=== PATIENT | female | born 1990 | race Caucasian/White ===

== ENCOUNTER 2019-03-29 08:04 | Inpatient (IN) | payer OTHER ==
[2019-04-02] MEDS ORDERED: Promethazine HCl 25 MG/ML VIAL IM PRN (22:15)
[2019-04-02] MEDS ORDERED: Butorphanol Tartrate 1 MG/ML VIAL SLOW IVP PRN (22:15)
[2019-04-02] MEDS ORDERED: NS / Oxytocin 40 units/1000ml 1,000 ML IV PRN (22:15)
[2019-04-02] MEDS ORDERED: hydrALAZINE 20 MG/ML VIAL SLOW IVP PRN (22:15)
[2019-04-02] MEDS ORDERED: Lidocaine 1% (PF) 30 ML VIAL SC PRN (22:15)
[2019-04-02] MEDS ORDERED: Ibuprofen 800 MG TAB PO PRN (22:15)
[2019-04-02] MEDS ORDERED: Ondansetron PF 4 MG/2 ML Vial IVP PRN (22:15)
[2019-04-02] MEDS ORDERED: HYDROcodone/Acetaminophen 5/325 mg Tablet PO PRN ×2 (22:15)
[2019-04-02] MEDS ORDERED: NS w/ Oxytocin 10 units 500 ML IV SCH ×2 (22:15)
[2019-04-02 22:21] VITALS: BMI 27.6
[2019-04-02] MEDS: Lactated Ringer's 1,000 ML IV SCH (22:25)
--- NOTE | 2019-04-02 22:30 | PDOC.EVN ---
Event Note - Event Note Event Note: IAN Hamilton At bedside Time: 0 I have reviewed COOK balloon with the patient. EDC: 03/29/19 Once IV completed we will place COOK balloon.
--- NOTE | 2019-04-02 22:47 | PDOC.EVN ---
Event Note - Event Note Event Note: @224 Cook balloon placed per IFU Filled 80/80 in stepwise sequence per IFU CX visually 1cm No complications
[2019-04-02 23:06] LABS: Hemoglobin 11.3 g/dL (12.0-16.0); Mean Corpuscular HGB CONC 34.4 g/dL (32.0-36.0); Mean Corpuscular Hemoglobin 29.7 pg (27.0-31.0); Mean Corpuscular Volume 86.4 fL (78.0-98.0); Mean Platelet Volume 9.4 fL (7.4-10.4); Platelet Count 178 thou/uL (130-400); RBC Distribution Width 11.6 % (11.5-14.5); Red Blood Cell (RBC) Count 3.82 mill/uL (4.20-5.40); White Blood Cell (WBC) Count 13.7 thou/uL (4.8-10.8)
[2019-04-02 23:45] LABS: HBSAg Index 0.19 S/CO (0-0.99); Hep B Surf Ag Non-Reactive S/CO (NonReactive)
[2019-04-02 23:51] LABS: Syphilis Antibody Nonreactive (Nonreactive); Syphilis Antibody Index 0.08 S/CO (<1.00 Non-Reactive)
--- NOTE | 2019-04-03 06:25 | PDOC.LDHP ---
Labor and Delivery H&P Chief complaint: scheduled induction HPI: Pt is here for scheduled IOL for prolonged . Current gestational age (weeks): 40 Due date: 03/29/19 Dating criteria: first trimester ultrasound Grav: 1 Para: 0 Current complications: none Abnormal US findings: No Past Medical History: hyperprolactinemia Current medications: pre- vitamins Previous surgical history: none Allergies/Adverse Reactions: Allergies Allergy/AdvReac Type Severity Reaction Status Date / Time Penicillins Allergy Mild Verified 04/02/19 23:16 Social history: none - Physical Exam Vital signs reviewed and normal: yes General: NAD Heart: RRR Lungs: CTAB Abdomen: gravid Extremeties: no edema FHT: category 1 - Vaginal Exam cm dilated: 1 - OB Labs Blood type: O RH: positive Antibody Screen: negative HIV: negative RPR: negative HEPSAg: negative 1 hour GCT: negative GBS: negative Urine drug screen: negative Rubella: immune - Assessment L&D Assessment: medically indicated induction (prolonged ) - Plan Plan: admit to L&D, cervical ripening (with Cook Ballon and pitocin), labor augmentation if indicated, informed consent obtained, anesthesia consult for pain management
[2019-04-03] MEDS ORDERED: Fentanyl 4 mcg/Bup 0.1% Cadd 100 ML ONE (08:37)
--- NOTE | 2019-04-03 08:56 | PDOC.LDPN ---
Labor & Delivery Progress Note - Subjective Subjective: comfortable - Objective Vital signs reviewed and normal: yes General: NAD Dilation: 6 Effacement: 75% Station: -1 FHT: category 1 AROM: meconium stained fluid - Assessment (1) Post-term , 40-42 weeks of gestation Code(s): O48.0 - POST-TERM Current Visit: Yes Status: Acute Plan: continue plan of care -: A?P: AROM after Cook balloon removal w meconium stained fluid noted. Pt doing well, epidural at patient request.
[2019-04-03] MEDS ORDERED: Fentanyl 100 MCG/2 ML VIAL ONE (09:06)
[2019-04-03] MEDS ORDERED: Promethazine HCl 25 MG/ML VIAL IM PRN (09:37)
[2019-04-03] MEDS ORDERED: Naloxone HCl 0.4 mg/ml Vial IVP PRN ×2 (09:37)
[2019-04-03] MEDS ORDERED: ePHEDrine/0.9% NaCl/PF SYRINGE 50 mg/10 ml SLOW IVP PRN (09:37)
[2019-04-03] MEDS ORDERED: Acetaminophen 325 MG TAB PO PRN (09:37)
[2019-04-03] MEDS ORDERED: Ondansetron PF 4 MG/2 ML Vial IVP PRN ×2 (09:37→16:08)
[2019-04-03] MEDS ORDERED: Lactated Ringer's 500 ML IV PRN (09:37)
[2019-04-03] MEDS ORDERED: diphenhydrAMINE 50 MG/ML VIAL IVP PRN (09:37)
[2019-04-03] MEDS ORDERED: Fentanyl 4 mcg/Bupivacaine 0.1% Cassette 100 ML EPIDURAL SCH (09:45)
[2019-04-03] MEDS ORDERED: Communication Order-Pharmacy FS SCH (09:45)
[2019-04-03] MEDS: Lactated Ringer's 1,000 ML IV SCH ×2 (10:23→21:16)
--- NOTE | 2019-04-03 14:36 | PDOC.OPDEL ---
OB Operative/Delivery Note Delivery Dr/Surgeon: Josesito Pre-Delivery Diagnosis: medically indicated induction (prolonged preg) Weeks gestation: 40 Anesthesia: epidural - Findings A Sex: female - 1 min: 9 - 5 min: 9 - Additional Findings/Plan Placenta delivered: spontaneous Repaired Obstetrical Laceration: left labial Estimated blood loss: 275ml Post delivery plan: routine recovery
[2019-04-03] MEDS ORDERED: diphenhydrAMINE 25 MG CAP PO PRN (16:08)
[2019-04-03] MEDS ORDERED: Lanolin Ointment 7 GM TUBE TOP PRN (16:08)
[2019-04-03] MEDS ORDERED: Benzocaine-Menthol 82.5 ML CAN TOP PRN (16:08)
[2019-04-03] MEDS ORDERED: Bisacodyl 10 MG SUPP PR PRN (16:08)
[2019-04-03] MEDS ORDERED: Preparation H Ointment 28 GM TUBE PR PRN (16:08)
[2019-04-03] MEDS ORDERED: NS / Oxytocin 40 units/1000ml 1,000 ML IV SCH (16:08)
[2019-04-03] MEDS ORDERED: hydrALAZINE 20 MG/ML VIAL SLOW IVP PRN (16:08)
[2019-04-03] MEDS ORDERED: HYDROcodone/Acetaminophen 5/325 mg Tablet PO PRN ×2 (16:08)
[2019-04-03] MEDS ORDERED: Milk Of Magnesia 30 ML UDCUP PO PRN (16:08)
[2019-04-03] MEDS: Ferrous Sulfate 325 MG TAB PO SCH (17:28)
[2019-04-03] MEDS: Ibuprofen 800 MG TAB PO SCH (21:14)
[2019-04-03] MEDS: Docusate Calcium (SURFAK) 240 MG CAP PO SCH (21:15)
[2019-04-04] MEDS: Ibuprofen 800 MG TAB PO SCH ×3 (06:07→21:15)
[2019-04-04] MEDS: Ferrous Sulfate 325 MG TAB PO SCH ×2 (07:51→17:24)
[2019-04-04] MEDS: Docusate Calcium (SURFAK) 240 MG CAP PO SCH ×2 (09:39→21:15)
[2019-04-04] MEDS: Prenatal Vitamin 1 TAB PO SCH (09:39)
--- NOTE | 2019-04-04 11:18 | PDOC.PP ---
Post Progress Note Post Day #: 1 Subjective: doing well, pain controlled, min bleeding, latching well PO intake tolerated: yes Flatus: yes Ambulation: yes Vital Signs (12 hours) Temp Pulse Resp BP Pulse Ox 04/04/19 11:15 98.0 F 107 H 20 120/58 L 04/04/19 08:00 98.2 F 81 14 125/60 96 04/04/19 02:58 98.4 F 69 20 106/57 L Weight Weight 182 lb - Physical Examination General: NAD Respiratory: non-labored breathing Abdominal: no distention Fundus firm & at: below umb Skin: no rash Psychiatric: A&Ox3, normal affect Result Diagrams: 04/02/19 22:47 Additional Labs: Post Labs Blood Type O POSITIVE 04/02/19 23:57 Hep Bs Antigen Non-Reactive S/CO (NonReactive) 04/02/19 22:47 (1) Post-term , 40-42 weeks of gestation Code(s): O48.0 - POST-TERM Status: Acute - Assessment/Plan PPD1 sp . No concerns, likely DC tomorrow.
[2019-04-04] MEDS ORDERED: Adacel (T-DAP) 0.5 ML SYRINGE IM ONE (16:08)
[2019-04-05] MEDS: Ibuprofen 800 MG TAB PO SCH (05:02)
[2019-04-05] MEDS: Ferrous Sulfate 325 MG TAB PO SCH (07:27)
[2019-04-05 07:39] VITALS: BP 116/66; TEMP 98.1
[2019-04-05] MEDS: Prenatal Vitamin 1 TAB PO SCH (09:00)
[2019-04-05] MEDS: Docusate Calcium (SURFAK) 240 MG CAP PO SCH (09:00)
--- NOTE | 2019-04-05 10:26 | PDOC.PP ---
Post Progress Note Post Day #: 2 Subjective: doing well, bleeding is minimal PO intake tolerated: yes Flatus: yes Ambulation: yes Vital Signs (12 hours) Temp Pulse Resp BP Pulse Ox 04/05/19 08:00 97 04/05/19 07:38 98.1 F 65 20 116/66 97 Weight Weight 182 lb - Physical Examination General: NAD Respiratory: non-labored breathing Abdominal: no distention Skin: no rash Neurological: no gross focal deficits Psychiatric: A&Ox3, normal affect Result Diagrams: 04/02/19 22:47 Additional Labs: Post Labs Blood Type O POSITIVE 04/02/19 23:57 Hep Bs Antigen Non-Reactive S/CO (NonReactive) 04/02/19 22:47 (1) Post-term , 40-42 weeks of gestation Code(s): O48.0 - POST-TERM Status: Acute - Assessment/Plan PPD2 doing well, plan for DC today.
== END 2019-04-05 12:55 | disposition home or self-care (01) | DRG 807 ==
LOC: EDSTATUS 08:04 → L&D 04-02 21:52 → 3SW 04-03 16:46
PROVIDERS: ADMIT Obstetrics & Gynecology; ATTEND Obstetrics & Gynecology
PROC: 10E0XZZ Delivery of Products of Conception, External Approach (ICD-10-PCS; principal; 2019-04-02)
PROC: 10907ZC Drainage of Amniotic Fluid, Therapeutic from Products of Conception, Via Natural or Artificial Opening (ICD-10-PCS; 2019-04-02)
PROC: 0HQ9XZZ Repair Perineum Skin, External Approach (ICD-10-PCS; 2019-04-02)
PROC: 0U7C7ZZ Dilation of Cervix, Via Natural or Artificial Opening (ICD-10-PCS; 2019-04-02)
DX: O48.0 Post-term pregnancy (principal); Z37.0 Single live birth; O70.0 First degree perineal laceration during delivery; Z3A.40 40 weeks gestation of pregnancy
CPT/HCPCS: 36415; 51702; 85027; 86780; 86850; 86900; 86901; 87340; C1726; J2405; J2590; J3010